=== PATIENT | female | born 1995 | race Caucasian/White ===

== ENCOUNTER 2023-05-10 22:58 | Emergency (ER) | payer SELFPAY ==
[~2023-05-10] VITALS: Ht 154.9 cm; Wt 58.5 kg
[2023-05-10 23:12] VITALS: BP 110/69; PULSE 68; RESP 17; TEMP 97.8; O2SAT 98
== END 2023-05-10 23:40 | disposition left against medical advice (07) ==
LOC: MED 22:58
DX: M79.646 Pain in unspecified finger(s) (principal); Z53.21 Procedure and treatment not carried out due to patient leaving prior to being seen by health care provider
CPT/HCPCS: 99281